=== PATIENT | female | born 1995 | race Caucasian/White ===

== ENCOUNTER 2024-09-15 10:27 | Outpatient (CLI) | payer MEDICAID, SELFPAY ==
[2024-09-15 10:21] LABS: ESR 1 mm/hr (0-20)
[2024-09-15 11:02] LABS: C-Reactive Protein < 0.50 mg/dL (<or=0.5)
[2024-09-19 13:43] LABS: ANA Interpretation Positive (Negative); ANA Titer Pattern 1:80 Homogeneous
[2024-09-19 14:24] LABS: Myeloperoxidase Ab IgG <0.2 U (>=0.4); Proteinase 3 Ab (PR3) <0.2 U
== END 2024-09-15 10:28 | disposition home or self-care (01) ==
LOC: LBO 10:27
PROVIDERS: Visit Provider Registered Nurse Maternal Newborn
DX: R51.9 Headache, unspecified (principal); G89.29 Other chronic pain; J34.89 Other specified disorders of nose and nasal sinuses
CPT/HCPCS: 36415; 85652; 83516; 86038; 86140